=== PATIENT | female | born 1960 | race Caucasian/White ===

== ENCOUNTER → 2017-11-19 | Outpatient (CLI) | payer BC ==
--- NOTE | 2017-11-19 09:01 | MR ---
EXAMINATION TYPE: MR knee RT wo con DATE OF EXAM: 11/19/2017 COMPARISON: None HISTORY: Right knee pain TECHNIQUE: Multiplanar, multisequence imaging of the right knee is performed without IV contrast. FINDINGS: There is intrasubstance signal involving the posterior horn and anterior horn of the medial meniscus with the articular extension compatible with tear. There is adjacent marrow edema within th e tibial plateau which may be reactive and there is Pseudo Extrusion of the medial meniscus. Grade 1 MCL strain noted. Lateral collateral ligament, posterior cruciate and anterior cruciate ligaments have a normal appeara nce. Patellar and quadriceps tendons intact and there is a trace of fluid in the suprapatellar bursa. There is narrowing of the knee joint particularly along the medial compartment and there is narrowing patellofemoral joint and a pattern suggestive of osteoarthritis. Patellar cartilage preserved. There is thinning of the medial articular femoral cartilage. Correlate for chondromalacia. Lateral meniscus has a normal appearance. Area of abnormal signal involving the posterior central mar gin the tibial plateau has a benign appearance compatible with a 1 cm intraosseous lesion most typica l of a cyst. No popliteal fossa cyst identified. IMPRESSION: 1. Osteoarthritis with grade 1 MCL sprain and findings suggestive of a posterior and anterior horn me dial meniscal tear with Pseudo Extrusion of the meniscus. Adjacent marrow edema involving the tibial plateau likely reactive.
== END ==
LOC: RADMRIMAIN 08:02
PROVIDERS: ATTEND Orthopaedic Surgery
DX: S83.411A Sprain of medial collateral ligament of right knee, initial encounter (principal); M17.11 Unilateral primary osteoarthritis, right knee